=== PATIENT | male | born 1960 | race Caucasian/White ===

== ENCOUNTER 2017-10-25 01:36 | Day surgery (SDC) | payer MEDICARE, MEDICAID ==
[2015-10-15 09:54] VITALS: Wt 66.7 kg
[2017-10-22 15:09] LABS: PLATELET COUNT, AUTOMATED 172 K/uL (150-450)
--- NOTE | 2017-10-24 13:25 | HISTORY AND PHYSICAL ---
DATE OF ADMISSION: October 25, 2017 CHIEF COMPLAINT History of bladder cancer. 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 He was last taken to the operating room on May 17, 2017 for surveillance cystoscopy and bilateral retrograde pyelograms, which were normal. The patient is now being returned to the operating room for planned surveillance cystoscopy. PAST MEDICAL HISTORY 1. Cerebral palsy with developmental delay. 2. Hypercholesterolemia. 3. Seizure disorder. 4. History of polio. 5. BPH. 6. Gastroesophageal reflux disease. 7. Depression. 8. Alcohol abuse. 9. Bladder cancer. PAST SURGICAL HISTORY 1. Circumcision with right orchiectomy. 2. [place] teeth extraction. 3. Bilateral hamstring release. 4. Cystoscopy with transurethral resection of bladder tumor in October 2015. 5. Cystoscopy with bladder biopsies April 2016. 6. Anesthetic cystoscopy August 2016. 7. Anesthetic cystoscopy, bilateral retrograde pyelograms May 2017. ALLERGIES No known drug allergies. CURRENT MEDICATIONS 1. Flomax. 2. Simvastatin. 3. Lexapro. 4. Calcium. 5. Baclofen. 6. Motrin. 7. Multivitamins. FAMILY HISTORY Noncontributory. SOCIAL HISTORY Patient is a [place] resident. He is an [facility] client with developmental delay and cerebral palsy, and he continues to use tobacco products. REVIEW OF SYSTEMS Patient denies gross hematuria, flank pain, change in weight, chest pain, shortness of breath, nausea, vomiting or fever or chills. PHYSICAL EXAMINATION GENERAL: Patient is a well-developed male in no acute distress. HEENT: Normocephalic, atraumatic. CHEST: Clear to auscultation bilaterally. CARDIOVASCULAR EXAM: Regular rate and rhythm. ABDOMINAL EXAM: Soft, nontender, no masses are palpated. EXAM: Deferred to the OR. EXTREMITY EXAM: Without clubbing, cyanosis or edema. NEUROLOGICAL EXAM: Nonfocal. IMPRESSION This is a 57-year-old white male with history of transitional cell carcinoma. PLAN We will perform anesthetic cystoscopy for surveillance purposes for his transitional cell carcinoma. KIMI
[~2017-10-25 01:36] MED LIST: BACL-1 PO; CALC1TAB24 PO; CARB15DR74 OP; DOCU-416 PO; ESC10 PO; ESCI20TA38 PO; GUAI-244 PO; HYDR12.558 PO; IBUP800T37 PO; KETC15T TOP; LOPE-147 PO; LOR1 PO; LOR5/325 PO; LURA40TA3 PO; MINE3.5O20 OP; MULT-1335 PO; NEOM1PAC11 TP; OLAN10TA25 PO; OMEG-11 PO; OXYB5TAB80 PO; PHEN200T32 PO; SIMV-54 PO; TAMS0.4C70 PO; THIA100T2 PO; TOLN150S5 TP; VAL80 PO; VARE1TAB4 PO; [UNRECOGNIZED DRUG - CODE] TOP; [UNRECOGNIZED DRUG - CODE] TOP
[2017-10-25] MEDS ORDERED: NORMOSOL R SOLN(*) 1000 ML BAG 1,000 ML IV PRN (06:45)
[2017-10-25] MEDS ORDERED: FAMOTIDINE 20 MG TAB PO ONE (06:45)
[2017-10-25] MEDS ORDERED: LIDOCAINE/SOD BICARB 8.4% SYR ID ONE (06:45)
[2017-10-25] MEDS ORDERED: MIDAZOLAM 2 MG/2 ML VIAL IVP PRN (06:45)
[2017-10-25] MEDS ORDERED: ceFAZolin(*) 1 GM VIAL 1 GM in NS(*) 0.9% 100 ML ADDVANT BAG 100 ML IVPB ONE (06:45)
[2017-10-25 06:59] VITALS: BP 140/90
[2017-10-25] MEDS ORDERED: IOPAMIDOL-200 50 ML VIAL IS ONE (07:42)
[2017-10-25] MEDS ORDERED: PROPOFOL EMUL(*) 10MG/ML 20 ML 40 ML ONE (07:42)
[2017-10-25] MEDS ORDERED: BELLADONNA ALK/OPIUM 60MG SUPP PR ONE (07:42)
[2017-10-25] MEDS ORDERED: KETOROLAC 30 MG/ML VIAL ONE (08:00)
[2017-10-25 09:03] VITALS: BP 124/68
[2017-10-25 09:35] VITALS: BP 124/81
--- NOTE | 2017-10-25 15:35 | OPERATIVE REPORT 1 ---
EVENT DATE: October 25, 2017 SURGEON: Lee Toth MD ANESTHESIOLOGIST: Ant Hernandez MD ANESTHESIA: General anesthetic. PREOPERATIVE DIAGNOSES 1. History of bladder cancer. 2. Annual prostate cancer screening. POSTOPERATIVE DIAGNOSES 1. History of bladder cancer. 2. Annual prostate cancer screening. PROCEDURES PERFORMED 1. Anesthetic cystoscopy. 2. Exam under anesthesia. PATHOLOGY Bladder cytology sent for permanent analysis. COMPLICATIONS None. CONDITION Patient awakened in the operating room and taken to the recovery area in stable condition. FINDINGS Normal cystoscopic and digital rectal exams. STATEMENT OF MEDICAL NECESSITY Patient is a 57-year-old male with a long smoking history who was noted to have a grade 2, T1, 2.5 cm transitional cell carcinoma of the bladder in October 2015. He is now being brought back to the operating room for surveillance cystoscopy. His last cystoscopic exam was in May, which was normal, along with bilateral retrograde pyelograms. He is also due for his annual prostate exam. His current PSA is 0.78. DESCRIPTION OF PROCEDURE PERFORMED Patient was brought to the operating room. After general anesthetic was obtained, he was placed in the dorsal lithotomy position and prepped and draped in the usual sterile manner. Anesthetic cystoscopy was performed with a 21- Khmer rigid [place] sheath and the 30-degree lens. He had a normal-appearing pendulous bulbar and membranous urethra. His bladder neck appeared open. Upon entering his bladder, he had a smooth bladder mucosa with 1+ trabeculation. There was no evidence of tumors or other lesions. The previous TUR site on the right lateral floor was well healed without evidence of a recurrence. At this point, the 70-degree lens was introduced, and the dome and anterior surface were also inspected, which were normal as well. Bladder cytology was obtained and sent for permanent analysis with reflex to FISH. At this point, the patient 's bladder was drained through the cystoscopic sheath. A B and O suppository was given per rectum along with bimanual exam. He had a normal-size prostate of approximately 35 g, which was smooth and symmetrical without nodularity. His bladder was freely mobile in his pelvis. At the conclusion of the procedure , the patient was awakened in the operating room and taken to the recovery area in stable condition. PLAN The plan will be to allow the patient to be discharged home today. We will see him in the Urology Clinic in approximately four to six months to check a urinalysis and discuss further followup surveillance cystoscopies. MTDD
== END 2017-10-25 09:03 | disposition home or self-care (01) ==
LOC: OR 01:36
PROVIDERS: ATTEND Urology
DX: Z12.5 Encounter for screening for malignant neoplasm of prostate (principal); Z85.51 Personal history of malignant neoplasm of bladder; G80.9 Cerebral palsy, unspecified
CPT/HCPCS: 36415; 52000; 81001; 84153; 85025; 87088; 88108; A9270; G0102; J0690; J1885; J2704; J7050; 82040; 82247; 82310; 82374; 82435; 82565; 82947; 84075; 84132; 84155; 84295; 84450; 84460; 84520; Q9966

== ENCOUNTER 2018-05-16 00:28 | Day surgery (SDC) | payer MEDICARE, MEDICAID ==
[2015-10-15 09:54] VITALS: Ht 162.6 cm; Wt 56.7 kg
--- NOTE | 2018-05-15 19:57 | HISTORY AND PHYSICAL ---
DATE OF ADMISSION: May 16, 2018 CHIEF COMPLAINT History of bladder cancer. HISTORY OF PRESENT ILLNESS The patient is a 57-year-old Latin-[place] male with a long smoking history who was recently found to have a 2.5 cm, grade 2, Ta transitional cell carcinoma of the bladder in September 2005. He was last taken to the operating room in September of this year for surveillance cystoscopy which was normal. He is now being returned six months later for surveillance cystoscopy. The patient is without any new complaints or issues and denies any hematuria. PAST MEDICAL HISTORY 1. Cerebral palsy with developmental delay. 2. Hypercholesterolemia. 3. Seizure disorder. 4. History of polio. 5. Benign prostatic hyperplasia. 6. Gastroesophageal reflux disease. 7. Depression. 8. Alcohol abuse. 9. Tobacco use. 10. History of bladder cancer. PAST SURGICAL HISTORY 1. Circumcision with right orchiectomy. 2. [place] teeth extraction. 3. Bilateral hamstring release. 4. Cystoscopy with transurethral resection of bladder tumor October 2015. 5. Cystoscopy with bladder biopsies April 2016. 6. Anesthetic cystoscopy August 2016. 7. Anesthetic cystoscopy with bilateral retrograde pyelograms May 2017. 8. Anesthetic cystoscopy and cytology October 25, 2017. ALLERGIES No known drug allergies. CURRENT MEDICATIONS 1. Baclofen. 2. Lexapro. 3. Lorazepam. 4. Latuda. 5. Oxybutynin. 6. Simvastatin. 7. Flomax. 8. Multivitamins. FAMILY HISTORY Noncontributory. SOCIAL HISTORY Patient is an [employer] client. He lives in [place], [place], and he continues to smoke. REVIEW OF SYSTEMS Patient denies gross hematuria, flank pain, change in weight, productive cough, fever, chills, or cardiac chest pain. PHYSICAL EXAMINATION GENERAL: Patient is a well-developed, well-nourished male in no acute distress. HEENT: He has poor dentition. Otherwise, normocephalic. CHEST: Clear to auscultation bilaterally. CARDIOVASCULAR: Regular rate and rhythm. No murmurs are heard. ABDOMINAL: Soft, nontender. No masses are felt. GENITOURINARY: Deferred to the OR. EXTREMITIES: Without clubbing, cyanosis, or edema. NEUROLOGIC: Nonfocal. IMPRESSION AND PLAN A 57-year-old white male with a continued smoking history and history of bladder cancer diagnosed two and a half years ago, now for surveillance cystoscopy. [facility]
[~2018-05-16] VITALS: Ht 162.6 cm; Wt 56.7 kg
[2018-05-16 07:58] LABS: PLATELET COUNT, AUTOMATED 199 K/uL (150-450)
[2018-05-16 08:00] VITALS: BP 158/92
[2018-05-16] MEDS ORDERED: ONDANSETRON 4 MG/2 ML VIAL ONE (09:40)
[2018-05-16] MEDS ORDERED: METOCLOPRAMIDE 10 MG/2 ML SDV ONE (09:40)
[2018-05-16] MEDS ORDERED: DEXAMETHASONE SOD 4 MG/ML VIAL ONE (09:40)
[2018-05-16] MEDS ORDERED: fentaNYL CITR 100 MCG/2 ML AMP ONE (09:46)
[2018-05-16] MEDS ORDERED: LIDOCAINE MPF 1% 5 ML VIAL ONE (09:46)
[2018-05-16] MEDS ORDERED: PROPOFOL EMUL(*) 10MG/ML 20 ML 20 ML ONE (09:46)
[2018-05-16] MEDS ORDERED: NORMOSOL R SOLN(*) 1000 ML BAG 1,000 ML IV PRN (09:50)
[2018-05-16] MEDS ORDERED: FAMOTIDINE 20 MG TAB PO ONE (09:50)
[2018-05-16] MEDS ORDERED: LIDOCAINE/SOD BICARB 8.4% SYR ID ONE (09:50)
[2018-05-16] MEDS ORDERED: MIDAZOLAM 2 MG/2 ML VIAL IVP PRN (09:50)
[2018-05-16] MEDS ORDERED: ceFAZolin(*) 1 GM VIAL 1 GM in NS(*) 0.9% 100 ML ADDVANT BAG 100 ML IVPB ONE (09:50)
[2018-05-16] MEDS ORDERED: IOPAMIDOL-200 50 ML VIAL IS ONE (11:37)
[2018-05-16] MEDS ORDERED: BELLADONNA ALK/OPIUM 60MG SUPP PR ONE (12:11)
[2018-05-16 13:00] VITALS: BP 133/82
[2018-05-16 13:15] VITALS: BP 146/94
[2018-05-16 13:17] VITALS: BP 153/88
--- NOTE | 2018-05-16 20:16 | OPERATIVE REPORT 1 ---
EVENT DATE: May 16, 2018 SURGEON: Lee Toth MD ANESTHESIOLOGIST: Terry Mancilla MD ANESTHESIA: General anesthetic. PREOPERATIVE DIAGNOSIS History of transitional cell carcinoma of the bladder. POSTOPERATIVE DIAGNOSIS History of transitional cell carcinoma of the bladder. PROCEDURES PERFORMED 1. Anesthetic cystoscopy with bladder cytology. 2. Bimanual exam under anesthesia. ESTIMATED BLOOD LOSS Minimal. INTRAVENOUS FLUIDS Crystalloid. DRAINS None. COMPLICATIONS None. PATHOLOGY Bladder cytology for permanent analysis. FINDINGS Normal cystoscopic exam. CONDITION Patient taken to recovery room awake, in stable condition. HISTORY OF PRESENT ILLNESS Patient is a 67-year-old white male with a history of grade 2 bladder cancer diagnosed in October 2015. He is now being returned to the operating room for surveillance cystoscopy. His preoperative urinalysis is normal, and he is without irritative voiding symptoms or hematuria. DESCRIPTION OF PROCEDURE PERFORMED Patient was brought to the operating room, and after general anesthetic was obtained, he was placed in the dorsal lithotomy position and prepped and draped in the usual sterile manner. Anesthetic cystoscopy was performed with the 21- Monegasque rigid sheath and both the 30- and 70-degree lenses. He had a normal- appearing pendulous, bulbar, and membranous urethra. Upon entering his bladder, his bladder was 1+ trabeculated. He had slit-like ureteral orifices both effluxing clear urine. TUR scar on the right floor was without change. There was no other evidence of tumor or lesions throughout the bladder. At this point, bladder cytology was obtained and sent for permanent analysis. The patient's bladder was drained through the cystoscopic sheath. A B and O suppository was given per rectum. Digital rectal exam revealed a normal, approximately 35 cc volume prostate without nodularity and normal sphincter tone. Bimanual exam revealed a freely mobile bladder without evidence of lesions or other anomalies. The patient was then awakened in the operating room and taken to the recovery area in stable condition. PLAN The plan will be to allow the patient to discharge home today. Will see him in the Urology Clinic in approximately six weeks' time to discuss further surveillance cystoscopies. KIMI
== END 2018-05-16 13:00 | disposition home or self-care (01) ==
LOC: OR 00:28
PROVIDERS: ATTEND Urology
DX: Z12.5 Encounter for screening for malignant neoplasm of prostate (principal); E78.00 Pure hypercholesterolemia, unspecified; N40.0 Benign prostatic hyperplasia without lower urinary tract symptoms; K21.9 Gastro-esophageal reflux disease without esophagitis; F32.9 Major depressive disorder, single episode, unspecified; F17.210 Nicotine dependence, cigarettes, uncomplicated; G80.9 Cerebral palsy, unspecified; G40.909 Epilepsy, unspecified, not intractable, without status epilepticus
CPT/HCPCS: 36415; 81001; 82040; 82247; 82310; 82374; 82435; 82565; 82947; 84075; 84132; 84153; 84155; 84295; 84450; 84460; 84520; 85025; 87088; 88108; C1758; J0690; J1100; J2001; J2405; J2704; J2765; J3010; J7050; Q9966

== ENCOUNTER 2019-02-20 02:47 | Day surgery (SDC) | payer MEDICARE, MEDICAID ==
[2015-10-15 09:54] VITALS: Ht 162.6 cm; Wt 60.8 kg
[2019-02-18 15:05] LABS: PLATELET COUNT, AUTOMATED 233 K/uL (150-450)
--- NOTE | 2019-02-19 15:55 | HISTORY AND PHYSICAL ---
DATE OF ADMISSION: February 20, 2019 CHIEF COMPLAINT Bladder cancer. HISTORY OF PRESENT ILLNESS Patient is a 58-year-old male with a long smoking history, who was recently found to have a 2.5 cm grade 2 superficial transitional carcinoma of the bladder in October 2015 as well as having multiple small lesions on the floor and posterior wall. He underwent resection of this tumor at that time and is now being brought back to the operating room for surveillance cystoscopy secondary to a history of cerebral palsy with developmental delay and inability to perform cystoscopic exam effectively in the office. The patient is currently without any new complaints or issues, but continues to use tobacco. PAST MEDICAL HISTORY 1. Cerebral palsy with developmental delay. 2. Hypercholesterolemia. 3. Seizure disorder. 4. History of polio. 5. BPH. 6. Gastroesophageal reflux disease. 7. Depression. 8. Alcohol use. 9. Tobacco use. 10. History of bladder cancer. PAST SURGICAL HISTORY 1. Circumcision with right orchiectomy. 2. [place] teeth extraction. 3. Bilateral hamstring release. 4. Cystoscopy with transurethral resection of bladder tumor 2015. 5. Cystoscopy with bladder biopsy April 2016. 6. Anesthetic cystoscopy 2016. 7. Anesthetic cystoscopy with bilateral retrograde pyelograms May 2017. 8. Anesthetic cystoscopy with cytology October 25, 2017. 9. Anesthetic cystoscopy May 16, 2018. ALLERGIES No known drug allergies. CURRENT MEDICATIONS 1. Baclofen. 2. Lexapro. 3. Lorazepam. 4. Latuda. 5. Ditropan. 6. Simvastatin. 7. Flomax. 8. Multivitamins. FAMILY HISTORY Noncontributory. SOCIAL HISTORY Patient is a patient of the [facility], lives in [place], [place]. He still uses tobacco products. REVIEW OF SYSTEMS Patient denies chest pain, shortness of breath, nausea, vomiting, fever, chills, change in weight, gross hematuria, or bleeding disorder. PHYSICAL EXAMINATION GENERAL: Patient is a well-developed, well-nourished white male in no acute distress. HEENT: Normocephalic, atraumatic. CHEST: Clear to auscultation bilaterally. CARDIOVASCULAR: Regular rate and rhythm. ABDOMEN: Soft, nontender. No masses are palpated. GENITOURINARY: Deferred to the OR. EXTREMITIES: Without clubbing, cyanosis, or edema. NEUROLOGIC: Nonfocal. IMPRESSION A 58-year-old male with a history of bladder cancer, who continues to smoke, now for surveillance cystoscopy. MTDD
[~2019-02-20] VITALS: Ht 162.6 cm; Wt 60.8 kg
[2019-02-20] MEDS ORDERED: FAMOTIDINE 20 MG TAB PO ONE (06:45)
[2019-02-20] MEDS ORDERED: ceFAZolin(*) 1 GM VIAL 1 GM in NS(*) 0.9% 100 ML MINI-BAG 100 ML IVPB ONE (06:45)
[2019-02-20] MEDS ORDERED: LIDOCAINE/SOD BICARB 8.4% SYR ID ONE (06:45)
[2019-02-20] MEDS ORDERED: MIDAZOLAM 2 MG/2 ML VIAL IVP PRN (06:45)
[2019-02-20] MEDS ORDERED: NORMOSOL R SOLN(*) 1000 ML BAG 1,000 ML IV PRN (06:45)
[2019-02-20] MEDS ORDERED: fentaNYL CITR 100 MCG/2 ML AMP ONE (06:57)
[2019-02-20] MEDS ORDERED: ONDANSETRON 4 MG/2 ML VIAL ONE (06:58)
[2019-02-20] MEDS ORDERED: DEXAMETHASONE SOD PHOS 10MG/ML ONE (06:58)
[2019-02-20] MEDS ORDERED: PROPOFOL EMUL(*) 10MG/ML 20 ML 20 ML ONE (06:58)
[2019-02-20] MEDS ORDERED: LIDOCAINE MPF 1% 5 ML VIAL ONE (06:58)
[2019-02-20 07:33] VITALS: BP 144/93
[2019-02-20] MEDS ORDERED: BELLADONNA ALK/OPIUM 60MG SUPP PR ONE (08:05)
--- NOTE | 2019-02-20 08:56 | OPERATIVE REPORT 1 ---
EVENT DATE: February 20, 2019 SURGEON: Lee Toth MD ANESTHESIOLOGIST: Tan Stewart MD ANESTHESIA: General anesthetic. PREOPERATIVE DIAGNOSIS Bladder cancer. POSTOPERATIVE DIAGNOSIS Bladder cancer. PROCEDURE PERFORMED Anesthetic cystoscopy with bladder cytology. ESTIMATED BLOOD LOSS Minimal. IV FLUIDS Crystalloids. DRAINS None. SPECIMENS Bladder barbotage cytology for permanent analysis. COMPLICATIONS None. CONDITION The patient taken to the recovery room awake and in stable condition. HISTORY OF PRESENT ILLNESS The patient is a 58-year-old white Israeli male with developmental delay and seizure disorder along with smoking history who was originally found to have a grade 2 superficial transitional carcinoma of the bladder in October 2015. He is now being returned to the operating room for surveillance cystoscopy. His last cystoscopy was in May 2018. His current PSA is 0.85 and his urinalysis is normal. DESCRIPTION OF PROCEDURE The patient was brought to the operating room and after general anesthetic was obtained he was placed in the dorsal lithotomy position, prepped and draped in the usual sterile manner. Anesthetic cystoscopy was performed with a 21-Kinyarwanda rigid sheath in both 30 and 70 degree lenses. He had a normal appearing pendulous bulbar membranous prostatic urethra. Upon entering his bladder, there were no bladder tumors or other lesions. He had a 1+ trabeculated bladder. The old TUR scar was well healed without evidence of recurrence. At this point, the barbotage bladder cytology was obtained. The patient's bladder was drained through the cystoscopic sheath. B and O suppository was given per rectum at the conclusion of the case. He was awakened in the operating room and taken to the recovery area in stable condition. The plan will be to allow Mr. Rodriguez to be discharged home today. We will see him in the urology clinic in approximately 6 months to check his symptoms and urinalysis and schedule a follow up surveillance cystoscopy. 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 He is to continue his preadmission medicines. KIMI
[2019-02-20 09:00] VITALS: BP 119/73
[2019-02-20 09:15] VITALS: BP 129/78
[2019-02-20 09:20] VITALS: BP 122/80
--- NOTE | 2019-02-20 09:36 | NUR ---
DISCHARGE INSTRUCTIONS REVIEWED WITH [facility] PT TELEHEALTH DIRECTOR, NO QUESTIONS AT THIS TIME. ASSISTED TO . DISCHARGED HOME IN AL"S CARE.
== END 2019-02-20 09:00 | disposition home or self-care (01) ==
LOC: OR 02:47
PROVIDERS: ATTEND Urology
DX: C67.9 Malignant neoplasm of bladder, unspecified (principal); N40.0 Benign prostatic hyperplasia without lower urinary tract symptoms
CPT/HCPCS: 36415; 52000; 81001; 84153; 85025; 87088; A9270; J0690; J1100; J2001; J2405; J2704; J3010